=== PATIENT | female | born 1950 | race Caucasian/White ===

== ENCOUNTER 2016-07-02 09:24 | Outpatient (CLI) | payer OTHER | END 2016-07-02 09:25 | LOC: LAB 09:24 | PROVIDERS: ATTEND Internal Medicine Endocrinology, Diabetes & Metabolism | DX: E04.1 Nontoxic single thyroid nodule (principal) | CPT/HCPCS: 36415; 84443 ==

== ENCOUNTER 2016-09-17 09:30 | Outpatient (CLI) | payer OTHER ==
[2016-09-17 10:18] LABS: eGFR (African) > 60; eGFR (Non-African) > 60
== END 2016-09-17 09:32 ==
LOC: LAB 09:30
PROVIDERS: ATTEND Internal Medicine Endocrinology, Diabetes & Metabolism
DX: E05.90 Thyrotoxicosis, unspecified without thyrotoxic crisis or storm (principal)
CPT/HCPCS: 36415; 80053; 80061; 83036; 84439; 84443

== ENCOUNTER 2017-02-18 09:58 | Outpatient (CLI) | payer OTHER | END 2017-02-18 10:00 | LOC: RT 09:58 | PROVIDERS: ATTEND Family Medicine | DX: Z00.00 Encounter for general adult medical examination without abnormal findings (principal); Z11.59 Encounter for screening for other viral diseases | CPT/HCPCS: 36415; 86803 ==

== ENCOUNTER 2017-02-26 09:30 | Outpatient (CLI) | payer OTHER | END 2017-02-26 09:32 | LOC: LAB 09:30 | PROVIDERS: ATTEND Internal Medicine Endocrinology, Diabetes & Metabolism | DX: E04.2 Nontoxic multinodular goiter (principal) | CPT/HCPCS: 36415; 84439; 84443 ==

== ENCOUNTER 2019-03-31 09:45 | Outpatient (CLI) | payer OTHER ==
--- NOTE | 2019-03-31 15:57 | Diagnostic Imaging Report ---
PATIENT MR#: [id number] PATIENT PATIENT NAME: GIRMA OCHOA DATE OF : 1950 REFERRING PHYSICIAN: Eugenie Sewell EXAM DATE: 03/31/2019 ACCESSION NUMBER: [id number] EXAM DESCRIPTION: CT CHEST W/O CONTRAST TECHNIQUE: CT chest without contrast. COMPARISON: September 10, 2018. CT CHEST WITHOUT CONTRAST: Lungs: Again noted are 3 calcified granulomas of the left upper lobe, unchanged. There is stable appe arance of 6 mm left upper lobe noncalcified nodule (image 11) and 2 noncalcified 3 mm nodules of the right upper lobe (im ages 19-20). Posterior subpleural nodule of the right lower lobe on axial image 22 is also stable. No infiltrate, masses or effusion. Heart: Normal size. No significant effusion. Coronary artery disease. Aorta: Normal caliber. Mediastinum and pérez: No significant lymphadenopathy allowing for limitation of noncontrast technique . Bony thorax: No acute findings. Limited upper abdomen: 2.7 cm hepatic cyst. Scattered hepatic and splenic calcified granulomas. IMPRESSION: Stable appearance of bilateral calcified and noncalcified pulmonary nodules, likely representing hist ory of granulomatous disease. If the patient has low personal risk for neoplasm, follow-up in 6 months to establish 1 year stabilit y is sufficient to exclude enlargement. If the patient has high personal risk for neoplasm, follow-up in 6 and 18 months to establish two-yea r stability is recommended. Read by: Dr. Palomo Jackson Transcribed by: Palomo Jackson Transcribed Date: 03/31/2019 3:56:44 PM Electronically signed by: Dr. Palomo Jackson Date signed: 03/31/2019 3:56:44 PM
== END 2019-03-31 10:00 ==
LOC: RAD 09:45
PROVIDERS: ATTEND Family Medicine
DX: R91.8 Other nonspecific abnormal finding of lung field (principal)
CPT/HCPCS: 71250